=== PATIENT | female | born 1995 | race Two or more races ===

== ENCOUNTER → 2022-01-13 | Day surgery (SDC) | payer OTHER ==
[~2022-01-13] VITALS: Ht 177.8 cm; Wt 79.4 kg
[~2022-01-13] MED LIST: DexAMETHasone SOD PHOS 10MG/1ML VIAL INJ ONE; KETOROLAC TROMETH 30 MG/ML 1ML VIAL IV ONE; KETOROLAC TROMETH 30 MG/ML 1ML VIAL ONE; LABETALOL HCL 5 MG/ML 4ML SYRINGE IV PRN; MEPERIDINE HCL (25 MG/ML) 1ML VIAL ONE; MIDAZOLAM HCL 2MG/2ML 2ml VIAL (1mg/ml) IV PRN; MIDAZOLAM HCL 2MG/2ML 2ml VIAL (1mg/ml) ONE; MORPHINE SULFATE 4 MG/ML SYR/VIAL IV PRN; MORPHINE SULFATE INJECTION 2 MG/ML SYRG IV ONE; MORPHINE SULFATE INJECTION 2 MG/ML SYRG ONE; ONDANSETRON HCL 4 MG/2 ML VIAL IV PRN; PREN-96 OR; PROPOFOL 10 MG/ML 20 ML IV ONE; ROPIVACAINE 0.5% (5MG/ML) 20ML AMPULE IJ ONE; ceFAZolin 1GM/50ML 100 ML IV ONE; ePHEDrine SULFATE 50 MG/ML AMP IV PRN; fentaNYL CITRATE 100 MCG/2 ML VL ONE; hydrALAZINE HCL 20 MG/ML VL IV PRN
[2022-01-13] MEDS: HYDROmorphone HCL 2 MG/ML VL IV PRN ×5 (14:15→14:55)
[2022-01-13 15:30] VITALS: BP 130/73
== END | disposition home or self-care (01) ==
LOC: SUR 09:41
PROVIDERS: ATTEND Orthopaedic Surgery
DX: S52.571A Other intraarticular fracture of lower end of right radius, initial encounter for closed fracture (principal); Z98.890 Other specified postprocedural states; Z79.899 Other long term (current) drug therapy; Z20.822 Contact with and (suspected) exposure to COVID-19; X58.XXXA Exposure to other specified factors, initial encounter; Y92.89 Other specified places as the place of occurrence of the external cause; Y93.89 Activity, other specified; Y99.8 Other external cause status
CPT/HCPCS: 25609; 73100; 76000; J0690; J1170; J1885; J2175; J2250; J2270; J2704; J2795; J3010; U0003; J1100